=== PATIENT | female | born 1945 | race Caucasian/White ===

== ENCOUNTER 2018-06-29 10:39 | Emergency (ER) | payer MEDICARE, MEDICAID ==
[~2018-06-29] VITALS: Ht 172.7 cm; Wt 78.5 kg
[~2018-06-29 10:39] MED LIST: GLYB5TAB4 PO; HTN MEDICATION PO; INSU100V11 SQ; INSU100V7 SQ; METF-442 PO
--- NOTE | 2018-06-29 10:55 | NUR ---
pt ambualted to bathroom and had bm
[2018-06-29] MEDS ORDERED: MINERAL OIL FLEET ENEMA 133 ML BOTTLE RC ONE (11:00)
--- NOTE | 2018-06-29 11:05 | NUR ---
pt co nausea, md at bedside talking to pt.
[2018-06-29] MEDS ORDERED: FLEET ENEMA 133 ML BOTTLE RC ONE (11:08)
[2018-06-29] MEDS ORDERED: ONDANSETRON 4 MG/2 ML VIAL ONE (12:40)
[2018-06-29] MEDS ORDERED: ONDANSETRON 4 MG/2 ML VIAL IV ONE (12:45)
--- NOTE | 2018-06-29 13:50 | NUR ---
pt says feels better, deneis nausea. requesting food. provided
--- NOTE | 2018-06-29 14:15 | NUR ---
Patient discharged to home in stable conditon. Written and verbal after care instructions given. Patient verbalizes understanding of instructions.
[2018-06-29 14:16] VITALS: BP 127/76
== END 2018-06-29 14:21 | disposition home or self-care (01) ==
LOC: ER 10:42
DX: K59.00 Constipation, unspecified (principal); K56.41 Fecal impaction; I10 Essential (primary) hypertension; E11.9 Type 2 diabetes mellitus without complications; Z88.5 Allergy status to narcotic agent; Z79.4 Long term (current) use of insulin
CPT/HCPCS: A4663; J2405; J7030

== ENCOUNTER 2019-09-13 14:57 | Emergency (ER) | payer OTHER, MEDICAID ==
[~2019-09-13] VITALS: Ht 172.7 cm; Wt 7.3 kg
[2019-09-13 16:31] VITALS: BP 152/91
--- NOTE | 2019-09-13 16:31 | NUR ---
Patient discharged to home in stable conditon. Written and verbal after care instructions given. Patient verbalizes understanding of instructions. Patient ambulated with stable gait.
== END 2019-09-13 16:32 | disposition home or self-care (01) ==
LOC: ER 14:57
DX: S16.1XXA Strain of muscle, fascia and tendon at neck level, initial encounter (principal); M25.531 Pain in right wrist; M25.561 Pain in right knee; M25.571 Pain in right ankle and joints of right foot; I10 Essential (primary) hypertension; E11.9 Type 2 diabetes mellitus without complications; Z88.5 Allergy status to narcotic agent; Z79.4 Long term (current) use of insulin; Z79.84 Long term (current) use of oral hypoglycemic drugs; W18.39XA Other fall on same level, initial encounter; Y93.89 Activity, other specified; Y92.89 Other specified places as the place of occurrence of the external cause; Y99.8 Other external cause status
CPT/HCPCS: 73110; 73610; A4663

== ENCOUNTER 2021-02-20 15:58 | Emergency (ER) | payer OTHER ==
[~2021-02-20] VITALS: Ht 172.7 cm; Wt 77.1 kg
[~2021-02-20 15:58] MED LIST changes: -METF-442 PO
--- NOTE | 2021-02-20 16:23 | NUR ---
[email or web address], medical screening exam in progress
[2021-02-20] MEDS ORDERED: ACETAMINOPHEN ES 500 MG TABLET PO ONE (16:45)
[2021-02-20] MEDS ORDERED: ACETAMINOPHEN ES 500 MG TABLET ONE (16:53)
--- NOTE | 2021-02-20 17:24 | NUR ---
Patient is resting comfortably on gurney with eyes closed, pending results & disposition, NAD.
[2021-02-20] MEDS ORDERED: ACET-2605 PO (17:49)
--- NOTE | 2021-02-20 17:55 | NUR ---
Patient discharged to home in stable condition with slow steady gait. Written and verbal after care instructions given. Patient verbalizes understanding & compliance of instructions. Stressed follow up with her primary doctor or return to ER for worsening s/s.
== END 2021-02-20 17:59 | disposition home or self-care (01) ==
LOC: ER 16:05
DX: S13.9XXA Sprain of joints and ligaments of unspecified parts of neck, initial encounter (principal); S63.92XA Sprain of unspecified part of left wrist and hand, initial encounter; S63.502A Unspecified sprain of left wrist, initial encounter; V43.52XA Car driver injured in collision with other type car in traffic accident, initial encounter; Y92.410 Unspecified street and highway as the place of occurrence of the external cause; M25.562 Pain in left knee; M25.561 Pain in right knee; R20.0 Anesthesia of skin; M50.30 Other cervical disc degeneration, unspecified cervical region; I10 Essential (primary) hypertension; E11.9 Type 2 diabetes mellitus without complications; Z88.5 Allergy status to narcotic agent; Z79.4 Long term (current) use of insulin
CPT/HCPCS: 72125; 73110; 73130; A4663; A9150

== ENCOUNTER 2021-04-28 14:04 | Emergency (ER) | payer OTHER ==
[~2021-04-28] VITALS: Ht 172.7 cm; Wt 77.1 kg
[~2021-04-28 14:04] MED LIST changes: +ACET-2605 PO
--- NOTE | 2021-04-28 15:44 | NUR ---
Patient discharged to home in stable condition. Written and verbal after care instructions given. Patient verbalizes understanding of instructions. Stressed follow up or return to ER for worsening s/s. Pt left ER w/ steady git.
[2021-04-28 15:45] VITALS: BP 132/70
== END 2021-04-28 15:45 | disposition home or self-care (01) ==
LOC: ER 14:06
DX: M25.552 Pain in left hip (principal); H00.035 Abscess of left lower eyelid; E11.9 Type 2 diabetes mellitus without complications; Z79.4 Long term (current) use of insulin; I10 Essential (primary) hypertension
CPT/HCPCS: 72192; A4663

== ENCOUNTER 2021-07-22 15:24 | Emergency (ER) | payer OTHER ==
[~2021-07-22] VITALS: Ht 172.7 cm; Wt 77.1 kg
[2021-07-22] MEDS ORDERED: TETRACAINE HCL 0.5% OPHT DROP 2 ML BOTTLE ONE (15:58)
[2021-07-22] MEDS ORDERED: FLUORESCEIN SODIUM 1 MG STRIP ONE (15:58)
[2021-07-22] MEDS ORDERED: TETRACAINE HCL 0.5% OPHT DROP 2 ML BOTTLE OP ONE (16:00)
--- NOTE | 2021-07-22 16:21 | NUR ---
Patient discharged to home in stable condition. Written and verbal after care instructions given. Patient verbalizes understanding of instructions. Stressed follow up or return to ER for worsening s/s.
== END 2021-07-22 16:22 | disposition home or self-care (01) ==
LOC: ER 15:24
DX: T65.891A Toxic effect of other specified substances, accidental (unintentional), initial encounter (principal); Y92.89 Other specified places as the place of occurrence of the external cause; I10 Essential (primary) hypertension; E11.9 Type 2 diabetes mellitus without complications; Z88.6 Allergy status to analgesic agent; Z79.4 Long term (current) use of insulin
CPT/HCPCS: A4663

== ENCOUNTER 2022-05-13 10:34 | Emergency (ER) | payer OTHER ==
[~2022-05-13] VITALS: Ht 172.7 cm; Wt 68.0 kg
[2022-05-13 11:23] LABS: *BILIRUBIN,URIN 3+ (NEGATIVE); *BLOOD, URINE 3+ (NEGATIVE); *CLARITY,URINE Other (CLEAR); *COLOR,URINE RED (YELLOW); *KETONES,URINE 2+ (NEGATIVE); *UROBILINOGEN,URINE >=8.0 E.U./dl (NORMAL); LEUKOCYTE ESTERASE ,URINE 3+ (NEGATIVE); NITRITE, URINE POSITIVE (NEGATIVE); PH,URINE 8.5 (5.0-8.0); UGLUCOSE 3+ (NEGATIVE)
[2022-05-13 11:36] LABS: HEMATOCRIT 39.9 % (31.2-41.9); MEAN CORPUSCULAR HEMOGLOBIN 29.3 uug (24.7-32.8); MEAN CORPUSCULAR VOLUME 85.9 fL (75.5-95.3); PLATELET COUNT (AUTO) 254 K/uL (179-408)
[2022-05-13 11:39] LABS: CREATININE 0.9 mg/dL (0.6-1.3)
[2022-05-13] MEDS ORDERED: CEPH500C2 PO (12:05)
[2022-05-13] MEDS ORDERED: CEphaleXIN 500 MG CAPSULE ONE (12:38)
--- NOTE | 2022-05-13 12:39 | NUR ---
MD DISCUSSED TEST RESULTS WITH PATIENT - INITIAL DOSE OF KEFLEX RENDERED PER MD ORDER; DISCHARGE INSTRUCTIONS GIVEN PER MD ORDER. PT IS CONTENT AT HER JAIL STAY.
[2022-05-13 12:42] VITALS: BP 148/90
[2022-05-13] MEDS ORDERED: CEphaleXIN 500 MG CAPSULE PO ONE (12:45)
[2022-05-13 13:37] LABS: BACTERIA,URINE FEW /HPF (NONE SEEN); RBC,URINE TNTC /HPF (0-3); SQUAMOUS EPITHELIAL CELL,UR FEW /HPF (NONE SEEN); WBC,URINE 20-50 /HPF (0-3)
== END 2022-05-13 12:56 | disposition home or self-care (01) ==
LOC: ER 10:34
DX: N39.0 Urinary tract infection, site not specified (principal); R31.0 Gross hematuria; E11.9 Type 2 diabetes mellitus without complications; Z79.4 Long term (current) use of insulin; I10 Essential (primary) hypertension; Z79.899 Other long term (current) drug therapy
CPT/HCPCS: 36415; 85025; 87077; 87086; A4663

== ENCOUNTER 2022-10-01 14:06 | Emergency (ER) | payer OTHER ==
[~2022-10-01] VITALS: Ht 172.7 cm; Wt 68.0 kg
[~2022-10-01 14:06] MED LIST changes: +CEPH500C2 PO
--- NOTE | 2022-10-01 15:05 | NUR ---
Pt still unable to supply urine sample yet.
[2022-10-01 15:17] LABS: HEMATOCRIT 40.1 % (31.2-41.9); MEAN CORPUSCULAR HEMOGLOBIN 29.6 uug (24.7-32.8); MEAN CORPUSCULAR VOLUME 86.5 fL (75.5-95.3); PLATELET COUNT (AUTO) 363 K/uL (179-408)
[2022-10-01 15:28] LABS: POTASSIUM 4.4 mmol/L (3.5-5.1)
[2022-10-01] MEDS ORDERED: IV NORMAL SALINE 1000 ML BAG IV ONE (16:00)
[2022-10-01 16:41] LABS: *BILIRUBIN,URIN NEGATIVE (NEGATIVE); *CLARITY,URINE SLIGHTLY CLOUDY (CLEAR); *COLOR,URINE YELLOW (YELLOW); *KETONES,URINE 3+ (NEGATIVE); *UROBILINOGEN,URINE 0.2 E.U./dl (NORMAL); LEUKOCYTE ESTERASE ,URINE TRACE (NEGATIVE); NITRITE, URINE NEGATIVE (NEGATIVE); PH,URINE 5.5 (5.0-8.0)
[2022-10-01 16:43] LABS: *BLOOD, URINE TRACE (NEGATIVE); UGLUCOSE 2+ (NEGATIVE)
[2022-10-01] MEDS ORDERED: CLIN300C12 PO (17:40)
[2022-10-01] MEDS ORDERED: CLOT15CR27 TP (17:40)
--- NOTE | 2022-10-01 18:35 | NUR ---
Removed IV intact, site okay, bandaged. Gave pt RX and d/c instructions, pt verbalized understanding.
[2022-10-01 21:43] LABS: BACTERIA,URINE MANY /HPF (NONE SEEN); RBC,URINE 0-3 /HPF (0-3); SQUAMOUS EPITHELIAL CELL,UR FEW /HPF (NONE SEEN)
== END 2022-10-01 18:50 | disposition home or self-care (01) ==
LOC: ER 14:08
DX: L03.314 Cellulitis of groin (principal); B37.2 Candidiasis of skin and nail; R35.0 Frequency of micturition; I10 Essential (primary) hypertension; L73.9 Follicular disorder, unspecified; E11.65 Type 2 diabetes mellitus with hyperglycemia; Z79.4 Long term (current) use of insulin
CPT/HCPCS: 99284; 96360; 96361; 80048; 81001; 85025; 85730; 36415; J7040; A4663

== ENCOUNTER 2022-10-07 21:27 | Emergency (ER) | payer OTHER ==
[~2022-10-07] VITALS: Ht 172.7 cm; Wt 71.7 kg
[~2022-10-07 21:27] MED LIST changes: +CLIN300C12 PO; +CLOT15CR27 TP
[2022-10-07] MEDS ORDERED: HYDROMORPHONE 1 MG/1 ML DISP.SYRIN IM ONE (22:30)
[2022-10-07] MEDS ORDERED: ONDANSETRON HCL 4 MG TABLET PO ONE (22:30)
[2022-10-07 23:21] LABS: HEMATOCRIT 37.1 % (31.2-41.9); MEAN CORPUSCULAR HEMOGLOBIN 28.8 uug (24.7-32.8); MEAN CORPUSCULAR VOLUME 86.9 fL (75.5-95.3); PLATELET COUNT (AUTO) 278 K/uL (179-408)
[2022-10-07 23:31] LABS: CREATININE 1.3 mg/dL (0.6-1.3); POTASSIUM 4.8 mmol/L (3.5-5.1)
[2022-10-08] MEDS ORDERED: INSULIN REGULAR, HUMAN 300 UNIT/3 ML VIAL IV ONE
[2022-10-08] MEDS ORDERED: IV NS 1000 ML 1,000 ML IV ONE ×2
--- NOTE | 2022-10-08 00:45 | NUR ---
#20g established in left ac area.
[2022-10-08 01:30] LABS: ABG BASE EXCESS -3.7 mmol/L; ABG HCO3 19.2 mmol/L; ABG PH 7.439 (7.350-7.450); ABG PO2 77.6 mmHg (75.0-100.0); ABG SITE RIGHT BRACHIAL; ABG TOTAL HEMOGLOBIN 13.2 G/dL (12.0-16.0); COHb 0.5 % (0.5-1.5); MetHb 0.1 % (0.0-1.5); O2Hb 95.3 % (94.0-97.0); VENT MODE ROOM AIR
[2022-10-08] MEDS ORDERED: INSULIN REGULAR, HUMAN 300 UNIT/3 ML VIAL ONE ×2 (02:22→02:24)
[2022-10-08] MEDS ORDERED: HYDROMORPHONE 1 MG/1 ML DISP.SYRIN ONE (02:25)
[2022-10-08] MEDS ORDERED: ONDANSETRON HCL 4 MG TABLET ONE (02:31)
== END 2022-10-08 03:05 | disposition short-term general hospital (02) ==
LOC: ER 21:29
DX: S72.142A Displaced intertrochanteric fracture of left femur, initial encounter for closed fracture (principal); W19.XXXA Unspecified fall, initial encounter; Y92.019 Unspecified place in single-family (private) house as the place of occurrence of the external cause; E11.65 Type 2 diabetes mellitus with hyperglycemia; Z79.4 Long term (current) use of insulin; E87.1 Hypo-osmolality and hyponatremia; I10 Essential (primary) hypertension; Z88.6 Allergy status to analgesic agent; Z87.11 Personal history of peptic ulcer disease; R00.0 Tachycardia, unspecified
CPT/HCPCS: J1170 ×16; 36415; 36600; 71045; 73502; 83735; 85025; 93005; J1815; J7040; Q0162

== ENCOUNTER 2023-02-26 15:40 | Emergency (ER) | payer OTHER ==
[~2023-02-26] VITALS: Ht 172.7 cm; Wt 59.0 kg
--- NOTE | 2023-02-26 15:49 | NUR ---
PT IS IN ROOM #3. DR LOWE EVALUATED THE PT.
[2023-02-26] MEDS ORDERED: ACETAMINOPHEN 325 MG TABLET ONE (15:55)
[2023-02-26] MEDS ORDERED: ACETAMINOPHEN 325 MG TABLET PO ONE (16:00)
[2023-02-26 17:15] VITALS: BP 140/66
--- NOTE | 2023-02-26 17:18 | NUR ---
Patient given written and verbal discharge instructions. Patient verbalizes understanding of instructions. Patient is ambulatory with steady gait. Refuses offer of snf placement. Patient given list of available shelters in surrounding area.
== END 2023-02-26 17:19 | disposition home or self-care (01) ==
LOC: ER 15:51
DX: S20.212A Contusion of left front wall of thorax, initial encounter (principal); M54.50 Low back pain, unspecified; I10 Essential (primary) hypertension; E11.9 Type 2 diabetes mellitus without complications; Z88.5 Allergy status to narcotic agent; Z79.4 Long term (current) use of insulin; Z79.2 Long term (current) use of antibiotics; Z79.899 Other long term (current) drug therapy; V89.2XXA Person injured in unspecified motor-vehicle accident, traffic, initial encounter; Y93.89 Activity, other specified; Y92.89 Other specified places as the place of occurrence of the external cause; Y99.8 Other external cause status
CPT/HCPCS: 71101; 72100; A4663

== ENCOUNTER 2023-12-08 17:25 | Emergency (ER) | payer OTHER ==
[~2023-12-08] VITALS: Ht 170.2 cm; Wt 73.5 kg
[2023-12-08 18:57] LABS: ETHANOL < 3 MG/DL (0-10)
[2023-12-08 18:58] LABS: CALCIUM 9.1 mg/dL (8.5-10.1); CARBON DIOXIDE 30 mmol/L (21-32); CHLORIDE 93 mmol/L (98-107); CREATININE 0.8 mg/dL (0.6-1.3); POTASSIUM 4.3 mmol/L (3.5-5.1); SODIUM SERUM 129 mmol/L (136-145); UREA NITROGEN, BLOOD 9 mg/dL (7-18)
[2023-12-08 18:59] LABS: AMMONIA < 10 umol/L (11-32)
[2023-12-08 19:03] LABS: BASOPHILS % (AUTO) 0.5 % (0.0-2.0); EOSINOPHILS % (AUTO) 0.4 % (0.0-7.0); HEMATOCRIT 38.3 % (31.2-41.9); LYMPHOCYTES # (AUTO) 1.2 K/uL (0.8-4.8); LYMPHOCYTES % (AUTO) 14.6 % (20.5-51.5); MEAN CORPUSCULAR HEMOGLOBIN 28.7 uug (24.7-32.8); MEAN CORPUSCULAR HGB CONC 34 g/dL (32.3-35.6); MEAN CORPUSCULAR VOLUME 84.6 fL (75.5-95.3); MONOCYTES # (AUTO) 0.6 K/uL (0.1-1.30); MONOCYTES % (AUTO) 7.8 % (0.0-11.0); NEUTROPHILS # (AUTO) 6.1 K/uL (1.8-8.9); NEUTROPHILS % (AUTO) 76.7 % (38.5-71.5); PLATELET COUNT (AUTO) 286 K/uL (179-408); RED BLOOD CELL COUNT(AUTO) 4.53 MIL/uL (3.63-4.92); RED CELL DISTRIBUTION WIDTH 13.4 % (12.3-17.7); WHITE BLOOD COUNT (AUTO) 7.9 K/uL (3.8-11.8)
[2023-12-08 19:08] LABS: THYROID STIMULATING HORMONE 1.045 mIU/mL (0.358-3.740)
[2023-12-08 19:12] LABS: ALANINE AMINOTRANSFERASE 14 U/L (14-59); ALBUMIN 3.3 g/dL (3.4-5.0); ALKALINE PHOSPHATASE 168 U/L (50-136); ASPARTATE AMINOTRANSFERASE < 5 U/L (15-37); BILIRUBIN,DIRECT 0.2 mg/dL (0.0-0.2); BILIRUBIN,TOTAL 0.8 mg/dL (0.2-1.0); TOTAL PROTEIN, SERUM 7.2 g/dL (6.4-8.2)
[2023-12-08 19:17] LABS: ACETAMINOPHEN < 2.0 ug/mL (10-30)
[2023-12-08] MEDS ORDERED: INSULIN REGULAR, HUMAN 300 UNIT/3 ML VIAL ONE (20:29)
[2023-12-08] MEDS: INSULIN REGULAR, HUMAN 300 UNIT/3 ML VIAL IV ONE (20:31)
[2023-12-08] MEDS: IV NS 1000 ML 1,000 ML IV ONE (20:32)
[2023-12-08 22:09] VITALS: BP 142/81; O2SAT 97
== END 2023-12-08 22:09 | disposition home or self-care (01) ==
LOC: ER 17:28
DX: E11.65 Type 2 diabetes mellitus with hyperglycemia (principal); I10 Essential (primary) hypertension; J40 Bronchitis, not specified as acute or chronic; E11.9 Type 2 diabetes mellitus without complications; Z79.899 Other long term (current) drug therapy; Z60.2 Problems related to living alone; Z88.5 Allergy status to narcotic agent; V89.2XXA Person injured in unspecified motor-vehicle accident, traffic, initial encounter; Y93.89 Activity, other specified; Y92.89 Other specified places as the place of occurrence of the external cause; Y99.8 Other external cause status
CPT/HCPCS: 36415; 70450; 71045; 72125; 72131; 84443; 84484; 85025; 85730; 93005; A4606; A4663; G0480; J1815; J7040

== ENCOUNTER 2024-04-01 16:08 | Emergency (ER) | payer OTHER, MEDICAID ==
[~2024-04-01] VITALS: Ht 165.1 cm; Wt 70.3 kg
[2024-04-01] MEDS: IV NORMAL SALINE 1000 ML BAG IV ONE (16:56)
[2024-04-01 17:05] LABS: BASOPHILS % (AUTO) 0.4 % (0.0-2.0); EOSINOPHILS # (AUTO) 0.1 K/uL (0.0-0.7); EOSINOPHILS % (AUTO) 0.9 % (0.0-7.0); HEMATOCRIT 33.4 % (31.2-41.9); HEMOGLOBIN 10.9 g/dL (10.9-14.3); LYMPHOCYTES # (AUTO) 1.1 K/uL (0.8-4.8); LYMPHOCYTES % (AUTO) 14.9 % (20.5-51.5); MEAN CORPUSCULAR HEMOGLOBIN 27.5 uug (24.7-32.8); MEAN CORPUSCULAR HGB CONC 33 g/dL (32.3-35.6); MEAN CORPUSCULAR VOLUME 84.4 fL (75.5-95.3); MONOCYTES # (AUTO) 0.6 K/uL (0.1-1.30); MONOCYTES % (AUTO) 7.5 % (0.0-11.0); NEUTROPHILS # (AUTO) 5.7 K/uL (1.8-8.9); NEUTROPHILS % (AUTO) 76.3 % (38.5-71.5); PLATELET COUNT (AUTO) 361 K/uL (179-408); RED BLOOD CELL COUNT(AUTO) 3.96 MIL/uL (3.63-4.92); RED CELL DISTRIBUTION WIDTH 13.9 % (12.3-17.7); WHITE BLOOD COUNT (AUTO) 7.5 K/uL (3.8-11.8)
[2024-04-01 17:07] LABS: DIFFERENTIAL COMMENT 1
[2024-04-01 17:26] LABS: ALANINE AMINOTRANSFERASE 76 U/L (14-59); ALKALINE PHOSPHATASE 183 U/L (50-136); ASPARTATE AMINOTRANSFERASE 26 U/L (15-37); BILIRUBIN,DIRECT 0.2 mg/dL (0.0-0.2); BILIRUBIN,TOTAL 0.7 mg/dL (0.2-1.0); CARBON DIOXIDE 26 mmol/L (21-32); CHLORIDE 102 mmol/L (98-107); CREATININE 0.7 mg/dL (0.6-1.3); GLUCOSE 267 mg/dL (74-106); NT-PRO BNP 158 pg/mL (0-125); SODIUM SERUM 137 mmol/L (136-145); TOTAL PROTEIN, SERUM 6.8 g/dL (6.4-8.2); UREA NITROGEN, BLOOD 18 mg/dL (7-18)
[2024-04-01] MEDS ORDERED: ACET325C7 PO (18:15)
[2024-04-01] MEDS ORDERED: CLOP75TA33 PO (18:15)
[2024-04-01] MEDS ORDERED: NAPH1POW3 PO (18:15)
[2024-04-01] MEDS ORDERED: METF-442 PO (18:15)
[2024-04-01 20:22] LABS: *BILIRUBIN,URIN NEGATIVE (NEGATIVE); *BLOOD, URINE NEGATIVE (NEGATIVE); *CLARITY,URINE CLEAR (CLEAR); *COLOR,URINE YELLOW (YELLOW); *KETONES,URINE NEGATIVE (NEGATIVE); *PROTEIN,URINE NEGATIVE (NEGATIVE); *UROBILINOGEN,URINE 0.2 E.U./dl (NORMAL); LEUKOCYTE ESTERASE ,URINE 1+ (NEGATIVE); NITRITE, URINE POSITIVE (NEGATIVE)
[2024-04-01 20:26] LABS: UGLUCOSE 2+ (NEGATIVE)
[2024-04-01 20:28] LABS: RBC,URINE 0-3 /HPF (0-3)
[2024-04-01 20:29] LABS: BACTERIA,URINE FEW /HPF (NONE SEEN)
[2024-04-01 21:09] LABS: *AMPHETAMINE, URINE NEGATIVE (NEGATIVE); *BARBITURATE, URINE NEGATIVE (NEGATIVE); *BENZODIAZEPINE, URINE NEGATIVE (NEGATIVE); *CANNABINOID, URINE NEGATIVE (NEGATIVE); *COCCAINE, URINE NEGATIVE (NEGATIVE); *OPIATE, URINE NEGATIVE (NEGATIVE); *PHENCYCLIDINE SCREEN,URINE NEGATIVE (NEGATIVE); FENTANYL, URINE NEGATIVE (NEGATIVE)
[2024-04-01 21:14] LABS: ACETAMINOPHEN < 2.0 ug/mL (10-30)
[2024-04-01] MEDS ORDERED: NITROFURANTOIN/NITROFURAN MAC 100 MG CAPSULE PO ONE ×2 (23:07→23:08)
[2024-04-01] MEDS: NITROFURANTOIN/NITROFURAN MAC 100 MG CAPSULE PO ONE (23:13)
[2024-04-02 08:11] VITALS: BP 152/73; TEMP 98.5; O2SAT 97
== END 2024-04-02 08:15 ==
LOC: ER 16:10
DX: F29 Unspecified psychosis not due to a substance or known physiological condition (principal); I10 Essential (primary) hypertension; J40 Bronchitis, not specified as acute or chronic; E11.9 Type 2 diabetes mellitus without complications; Z79.899 Other long term (current) drug therapy; Z20.822 Contact with and (suspected) exposure to COVID-19; Z60.2 Problems related to living alone; Z88.5 Allergy status to narcotic agent
CPT/HCPCS: 99285; 96360; 71045; 87426; 80076; 80048; 83880; 85025; 84484; 36415; 81001; 93005; 83605 ×2; 80299; 80307; J7040; A4606; A4663